=== PATIENT | female | born 1935 | race Caucasian/White ===

== ENCOUNTER → 2016-07-02 | Outpatient (REF) ==
[~2016-07-02] MED LIST: AMBIEN 10MG10 MG PO; ATIVAN0.5 MG PO; CALTRATE-600 W600 MG PO; EVISTA60 MG PO; FISH OIL CONC1000 MG PO; GOOD NEIGHBOR325 MG PO; MAGNESIUM OXIDE PO; NIFEDIPINE ER30 MG PO; ONE DAILY1 TA2 PO; PRILOSEC 20MG20 MG PO; UROCIT; VITAMIN C500 MG PO; VITAMIN D PO
== END ==
LOC: ZLAB.WCH 15:00
DX: Z01.89 Encounter for other specified special examinations (principal)

== ENCOUNTER → 2016-11-09 | Outpatient (CLI) | payer MEDICARE, OTHER | LOC: COL.RAD 12:54 | DX: M47.813 Spondylosis without myelopathy or radiculopathy, cervicothoracic region (principal); M53.82 Other specified dorsopathies, cervical region; R20.0 Anesthesia of skin ==

== ENCOUNTER → 2016-12-25 | Outpatient (REF) | LOC: ZLAB.WCH 15:46 | DX: Z01.89 Encounter for other specified special examinations (principal) ==

== ENCOUNTER → 2016-12-28 | Outpatient (REF) | LOC: ZLAB.WCH 19:47 | DX: Z01.89 Encounter for other specified special examinations (principal) ==

== ENCOUNTER → 2017-04-29 | Outpatient (REF) | LOC: ZLAB.WCH 18:07 | DX: Z01.89 Encounter for other specified special examinations (principal) ==

== ENCOUNTER 2017-06-10 10:45 | Outpatient (RCR) | payer MEDICARE, OTHER | END 2017-06-14 12:30 | disposition home or self-care (01) | LOC: MKS.ESL.PT 10:45 | DX: G62.9 Polyneuropathy, unspecified (principal); E11.9 Type 2 diabetes mellitus without complications; R20.2 Paresthesia of skin ==

== ENCOUNTER 2017-06-10 10:45 | Outpatient (RCR) | payer MEDICARE, OTHER | END 2017-06-14 12:30 | disposition home or self-care (01) | LOC: MKS.ESL.PT 10:45 | DX: G62.9 Polyneuropathy, unspecified (principal); R20.2 Paresthesia of skin; E11.9 Type 2 diabetes mellitus without complications; Z88.8 Allergy status to other drugs, medicaments and biological substances | CPT/HCPCS: G8990-GP; G8991-GP; G8992-GP ==

== ENCOUNTER → 2017-12-08 | Outpatient (REF) ==
[2017-12-08 17:11] LABS: THYROID STIMULATING HORMONE 2.92 uIU/mL (0.465-4.680)
== END ==
LOC: ZLAB.WCH 15:51
PROVIDERS: Internal Medicine
DX: Z01.89 Encounter for other specified special examinations (principal)